=== PATIENT | male | born 1975 | race Caucasian/White ===

== ENCOUNTER 2017-12-12 08:22 | Day surgery (SDC) | payer BC ==
[~2017-12-12] VITALS: Ht 182.9 cm; Wt 69.0 kg
[2017-12-12 09:28] VITALS: BP 125/79
[2017-12-12] MEDS ORDERED: NORCO 5/3251 TABLET PO (11:17)
[2017-12-12 12:37] VITALS: BP 145/86
[2017-12-12 13:11] VITALS: BP 144/75
== END 2017-12-12 13:17 | disposition home or self-care (01) ==
LOC: SDC 08:22
PROC: 0JB70ZZ Excision of Back Subcutaneous Tissue and Fascia, Open Approach (ICD-10-PCS; principal; 2017-12-12)
DX: D17.1 Benign lipomatous neoplasm of skin and subcutaneous tissue of trunk (principal)
CPT/HCPCS: 88304; J0131; J0690; J1100; J1885; J2250; J2405; J3010